=== PATIENT | female | born 1995 | race Hispanic/Latino ===

== ENCOUNTER 2020-08-08 08:02 | Emergency (ER) | payer OTHER, SELFPAY ==
[2020-08-08 08:15] VITALS: BP 133/77; PULSE 85; RESP 18; TEMP 37.2; O2SAT 99; BMI 25.2
--- NOTE | 2020-08-08 08:39 | ED.GENADULT ---
HPI - General Adult General Chief complaint: Neuro Symptoms/Deficit Stated complaint: Left side inter. numbness/tingling/fever x3days Time Seen by Provider: 08/08/20 08:10 Source: patient Mode of arrival: Family Vehicle Limitations: no limitations History of Present Illness HPI narrative: Patient is a 25-year-old female here for evaluation of approximately 4-5 days of weakness in her left hand, numbness on the top and bottom of her left foot and some tingling on the left side of her face. She received her 1st COVID vaccine in her left arm approximately 3 weeks ago. She states that she does have a history of headaches but has never been diagnosed with migraines although she has received a prescription for Zomig. She stated a couple days ago she did have a very slight headache that went away with Advil. She is not currently having headache. She also reports over the weekend she had a fever at home of 100.3. She does not have a fever today. No skin changes. No rashes. 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 No trauma. Has not taken anything for her symptoms prior to her Related Data Allergies Allergy/AdvReac Type Severity Reaction Status Date / Time No Known Drug Allergies Allergy Verified 08/08/20 09:46 Review of Systems Constitutional Constitutional: Denies chills, Denies fatigue, Denies fever(s) (Not currently), Denies headache(s) (Not currently) and Reports weakness Eyes Eyes: Denies change in vision ENT Ears, Nose, Mouth, and Throat: Denies vertigo, Denies dizziness, Denies headache(s) (Not currently), Denies disequilibrium and Denies sore throat Cardiovascular Cardiovascular: Denies chest pain, Denies rapid heart rate and Denies dyspnea Respiratory Respiratory: Denies cough and Denies dyspnea Gastrointestinal Gastrointestinal: Denies abdominal pain, Denies nausea and Denies vomiting Genitourinary Genitourinary: Denies dysuria Genitourinary: Denies dysuria Musculoskeletal Musculoskeletal: Denies arthralgias, Reports muscle weakness, Denies myalgias, Reports numbness and Reports tingling Integumentary/Breasts Skin/Breast: Denies lesions and Denies rash Neurologic Neurologic: Denies abnormal movements, Denies abnormal speech, Denies behavioral changes, Denies confusion, Denies vertigo, Denies dizziness, Denies headache(s) (Not currently), Reports numbness, Reports sensory deficit, Reports tingling, Denies disequilibrium and Reports weakness Psychiatric Psychiatric: Denies anxiety, Denies behavioral changes and Denies confusion Endocrine Endocrine: Denies fatigue and Denies flushing Hematologic/Lymphatic On Anticoagulants: No Allergic/Immunologic Allergic/Immunologic: Denies urticaria Patient History Medical History Healthy adult Social History Smoking Status: Current every day smoker Smoking Status: Current every day smoker tobacco type: vaping alcohol intake frequency: 0-2 drinks per day Substance Use Type: does not use Exam Initial Vital Signs Initial Vital Signs: Vital Signs Temperature 98.9 F 08/08/20 08:15 Pulse Rate 85 08/08/20 08:15 Respiratory Rate 18 08/08/20 08:15 Blood Pressure 133/77 08/08/20 08:15 Pulse Oximetry 99 08/08/20 08:15 Const General: cooperative, comfortable, well developed and well groomed Limitations: mental status not altered [facility] Head: normal to inspection and normocephalic Nose: external nose normal Face and sinus: normal facial exam Eyes General: appearance normal, both eyes and all related structures Pupils: PERRL EOM: EOM intact bilaterally Chest Chest: No crepitus and No tenderness Resp Effort & Inspection: normal respiratory effort Auscultation: clear to auscultation bilaterally Cardio Rate: regular rate Rhythm: regular rhythm GI Inspection: non-distended Palpation: soft and No tender Back/Spine/Pelvis Cervical Spine: cervical muscular tenderness and No cervical spinal tenderness Thoracic/Lumbar Spine: No thoracic spinal tenderness Skin Lesions: no lesions Rashes: no rashes Neuro General: patient alert, patient awake and patient oriented x3 Cognition: normal cognition Speech: speech normal DTR's: Rt Biceps: 2+, Lt Biceps: 2+, Rt Patellar: 2+, Lt Patellar: 2+, Rt Ankle: 2+ and Lt Ankle: 2+ Other: Her cranial nerves are intact except for decreased sensation to light touch on her forehead cheek and neck on the left. She reports decrease sensation to light touch on her left arm and hand compared to the right. The decreased sensation seems to be circumferential from her elbow to her fingers. Her deltoid strength bilateral is 5/5. Her biceps and triceps strength bilateral is 5/5 however wrist flexion and extension is 3/5 on the left and 5/5 on the right. Strength in her lower extremities is 5/5 bilateral both in the hip flexors and knee and calf. She reports decreased sensation to light touch on the top of her left foot and the bottom of her left foot compared to the right otherwise no other sensory deficits in the lower extremities. Extrem General: normal to inspection and capillary refill normal Psych Appearance: grossly normal and well kempt Scores GCS [place] coma scale eye opening: Spontaneous [place] coma scale verbal response: Orientated Nicole coma scale motor response: Obey commands Nicole coma scale total score: 15 Course Orders Ordered: ED Orders 08/08/20 08:23 COVID19 -Nasal swab/Pre-Proc Stat 08/08/20 08:42 CT head/brain wo con Stat 08/08/20 09:13 Basic Metabolic Panel Stat Complete Blood Count AUTO DIFF Stat Magnesium Stat Phosphorous Stat Test Serum,Qual Stat Vital Signs Vital signs: Vital Signs - 8 hr 08/08/20 08:15 Temperature 98.9 F Pulse Rate 85 Respiratory Rate 18 Blood Pressure 133/77 Pulse Oximetry 99 Medical Decision Making Medical Records Medical records reviewed: Yes I reviewed the patient's medical records. Lab Data Lab results reviewed: Yes I reviewed the patient's lab results. Result diagrams: 08/08/20 09:13 08/08/20 09:13 Labs: Lab Results 08/08/20 08/08/20 08/08/20 Range/Units 08:23 09:13 09:13 WBC 4.4 L (4.5-11.0) X10^3/uL RBC 4.87 (4.0-5.2) X10^6/uL Hgb 14.2 (12.0-16.0) g/dL Hct 42.5 (36-46) % MCV 87.2 (80-100) fL MCH 29.2 (26-34) PG MCHC 33.4 (30-36) % RDW 12.6 (11.6-14.8) % Plt Count 245 (150-400) X10^3/uL Neut % (Auto) 57.7 (50-75) % Lymph % (Auto) 33.1 (25-40) % [place] % (Auto) 7.4 (3-14) % Eos % (Auto) 1.0 L (2-4) % Baso % (Auto) 0.8 (0-2) % Neut # (Auto) 2500 (8704-9378) /uL Lymph # (Auto) 1400 (0057-2590) /uL [place] # (Auto) 300 (0-900) /uL Eos # (Auto) 0 (0-450) /uL Baso # (Auto) 0 (0-100) /uL Sodium 140 (137-145) mmol/L Potassium 3.7 (3.4-5.1) mmol/L Chloride 105 (98-107) mmol/L Carbon Dioxide 26 (22-32) mmol/L BUN 11 (7-17) mg/dL Creatinine 0.68 (0.52-1.04) mg/dL Estimated GFR > 60.0 (>60) mL/min BUN/Creatinine Ratio 16.2 (6-22) Glucose 90 (70-100) mg/dL Calcium 9.8 (8.4-10.2) mg/dL Phosphorus 3.3 (2.5-4.5) mg/dL Magnesium 2.0 (1.6-2.3) mg/dL Serum , Qual (Negative) SARS-CoV-2 (PCR) Negative (Negative) 08/08/20 Range/Units 09:13 WBC (4.5-11.0) X10^3/uL RBC (4.0-5.2) X10^6/uL Hgb (12.0-16.0) g/dL Hct (36-46) % MCV (80-100) fL MCH (26-34) PG MCHC (30-36) % RDW (11.6-14.8) % Plt Count (150-400) X10^3/uL Neut % (Auto) (50-75) % Lymph % (Auto) (25-40) % [place] % (Auto) (3-14) % Eos % (Auto) (2-4) % Baso % (Auto) (0-2) % Neut # (Auto) (0074-7539) /uL Lymph # (Auto) (8287-5897) /uL [place] # (Auto) (0-900) /uL Eos # (Auto) (0-450) /uL Baso # (Auto) (0-100) /uL Sodium (137-145) mmol/L Potassium (3.4-5.1) mmol/L Chloride (98-107) mmol/L Carbon Dioxide (22-32) mmol/L BUN (7-17) mg/dL Creatinine (0.52-1.04) mg/dL Estimated GFR (>60) mL/min BUN/Creatinine Ratio (6-22) Glucose (70-100) mg/dL Calcium (8.4-10.2) mg/dL Phosphorus (2.5-4.5) mg/dL Magnesium (1.6-2.3) mg/dL Serum , Qual Negative (Negative) SARS-CoV-2 (PCR) (Negative) Point of Care Testing Test Results Negative Urine Dip Bedside Urine Glucose Negative Bedside Urine Bilirubin - Negative Bedside Urine Ketone - Negative Urine Specific [place] 1.015 Bedside Urine Occult Blood - Negative Bedside Urine pH 6.5 Bedside Urine Protein - Negative Bedside Urine Urobilinogen - Negative Bedside Urine Nitrite - Negative Bedside Urine Leukocytes - Negative Esterase Point of care testing: Point of Care Testing Test Results Negative Urine Dip Bedside Urine Glucose Negative Bedside Urine Bilirubin - Negative Bedside Urine Ketone - Negative Urine Specific [place] 1.015 Bedside Urine Occult Blood - Negative Bedside Urine pH 6.5 Bedside Urine Protein - Negative Bedside Urine Urobilinogen - Negative Bedside Urine Nitrite - Negative Bedside Urine Leukocytes - Negative Esterase Imaging Data CT scan - head: Radiologist's Impression: [address] [id number] Scan ReportSigned Patient: Luzmaria Doss LMR#: [id number]: [id number]:[id number]/Sex: 25 / FDate of Service: 08/08/20Loc: EDAccession Number: [id number] Procedure: CT head/brain wo con Ordering Provider: Delmer Cunha D.O. PROCEDURE: CT HEAD/BRAIN WO CON INDICATIONS: Left-sided weakness TECHNIQUE: Noncontrast 4.5 mm thick angled axial sections acquired from the foramen magnum to the vertex, with coronal and sagittal reformats. For radiation dose reduction, the following was used: automated exposure control, adjustment of mA and/or kV according to patient size. COMPARISON: None. FINDINGS: Image quality: Excellent. CSF spaces: Basal cisterns are patent. No extra-axial fluid collections. Ventricles are normal in size and shape. Brain: No midline shift. No intracranial masses or hemorrhage. Bravo-white matter interface is normal. Skull and face: Calvarium and visualized facial bones are intact, without suspicious lesions. Sinuses: Visualized sinuses and mastoids are clear. IMPRESSION: 1. No acute intracranial abnormalities. If clinical symptoms persist or clinical suspicion for pathology is high, MRI is suggested for further evaluation. Dictated by: Tiera Brown M.D. on 08/08/2020 at 8:53 Approved by: Tiera Brown M.D. on 08/08/2020 at 8:57 [facility] Narrative Medical decision making narrative: She does have objective findings on her neurologic exam and it seems to be associated to her distal left upper extremity. Her head CT is unremarkable. Labs are unremarkable. I do have low suspicion for CVA. Her clinical presentation does not fit any specific vessel distribution. Low suspicion for large vessel occlusion. Her symptoms on her face oral sensory. There is no motor involvement. Low suspicion for Cuevas's palsy. Her left upper extremity issues seem to be isolated to her distal forearm to include her hand. Her reflexes are equal both sides. The symptoms in her left lower extremity are isolated to sensory and are only on the top of her foot on the bottom of her foot. Her symptoms are not consistent with Guillain-[place]. Not consistent with nerve impingement. Her potassium is unremarkable. She has had no recent camping. No rashes. Her COVID is negative. No head bleed. No mass in her head. She is not currently having a headache. This could potentially be an atypical migraine but it would be unusual presentation given her symptoms. I feel we can hold on an MRI. No indication for antibiotics. Patient has no respiratory distress. She was instructed to contact her primary provider for a follow-up to discuss further workup to include potential Neurology versus MRI. She was given return precautions. She expressed understanding and agreement. Discharge Plan Departure Patient Disposition: Home Clinical Impression: Muscle weakness, Distal paresthesia Instructions: DI for Muscle Weakness Activity Restrictions/Additional Instructions: I recommend that you make and keep an appointment with your primary doctor to discuss further workup to include a potential MRI versus Neurology referral. Return to the emergency department for any new or worsening symptoms like we discussed.
--- NOTE | 2020-08-08 08:42 | DI.CT.S_ITS ---
PROCEDURE: CT HEAD/BRAIN WO CON INDICATIONS: Left-sided weakness TECHNIQUE: Noncontrast 4.5 mm thick angled axial sections acquired from the foramen magnum to the vertex, with coronal and sagittal reformats. For radiation dose reduction, the following was used: automated exposure control, adjustment of mA and/or kV according to patient size. COMPARISON: None. FINDINGS: Image quality: Excellent. CSF spaces: Basal cisterns are patent. No extra-axial fluid collections. Ventricles are normal in size and shape. Brain: No midline shift. No intracranial masses or hemorrhage. Bravo-white matter interface is normal. Skull and face: Calvarium and visualized facial bones are intact, without suspicious lesions. Sinuses: Visualized sinuses and mastoids are clear. IMPRESSION: 1. No acute intracranial abnormalities. If clinical symptoms persist or clinical suspicion for pathology is high, MRI is suggested for further evaluation. Dictated by: Tiera Brown M.D. on 08/08/2020 at 8:53 Approved by: Tiera Brown M.D. on 08/08/2020 at 8:57
[2020-08-08 09:03] LABS: COVID19 -Nasal RAPID Negative (Negative)
--- NOTE | 2020-08-08 09:18 | PC.NURSE ---
presents with left sided weakness. left arm is numb intermittently. bottom of left foot goes numb intermittently.
[2020-08-08 09:35] LABS: Add Manual Diff / Slide Review NO; Basophils Absolute Auto 0 /uL (0-100); Basophils Percent Auto 0.8 % (0-2); Eosinophils Absolute Auto 0 /uL (0-450); Hematocrit 42.5 % (36-46); Hemoglobin 14.2 g/dL (12.0-16.0); Lymphocytes Absolute Auto 1400 /uL (1100-4500); Lymphocytes Percent Auto 33.1 % (25-40); Mean Corpuscular HGB Conc 33.4 % (30-36); Mean Corpuscular Hemoglobin 29.2 PG (26-34); Mean Corpuscular Volume 87.2 fL (80-100); Monocytes Absolute Auto 300 /uL (0-900); Monocytes Percent Auto 7.4 % (3-14); Neutrophils Absolute Auto 2500 /uL (1500-7000); Neutrophils Percent Auto 57.7 % (50-75); Platelet Count 245 X10^3/uL (150-400); Red Blood Cell Count 4.87 X10^6/uL (4.0-5.2); Red Cell Distribution Width 12.6 % (11.6-14.8); White Blood Cell Count 4.4 X10^3/uL (4.5-11.0)
[2020-08-08 09:40] LABS: Pregnancy Test Serum,Qual Negative (Negative)
[2020-08-08 09:41] LABS: BUN Creatinine Ratio 16.2 (6-22); Blood Urea Nitrogen 11 mg/dL (7-17); Calcium 9.8 mg/dL (8.4-10.2); Carbon Dioxide 26 mmol/L (22-32); Chloride 105 mmol/L (98-107); Estimated Glomerular Filt Rate > 60.0 mL/min (>60); Glucose 90 mg/dL (70-100); HEMOLYSIS < 15 (0-50); Phosphorous 3.3 mg/dL (2.5-4.5); Potassium 3.7 mmol/L (3.4-5.1); Sodium 140 mmol/L (137-145)
[2020-08-08 10:15] VITALS: BP 124/60; PULSE 77; RESP 18; O2SAT 99
== END 2020-08-08 10:17 | disposition home or self-care (01) ==
PROVIDERS: Emergency Provider Emergency Medicine
DX: M62.81 Muscle weakness (generalized) (principal); R20.2 Paresthesia of skin; Z20.822 Contact with and (suspected) exposure to COVID-19
CPT/HCPCS: 36415; 70450; 80048; 81003; 81025; 83735; 84100; 84703; 85025; 87635; 99284; C9803